=== PATIENT | female | born 1980 | race Asian ===

== ENCOUNTER → 2016-04-26 | Outpatient (CLI) | payer OTHER ==
[~2016-04-26] MED LIST: LEVO175T3 PO; PRENTAB26 PO
[2016-04-26 16:17] LABS: THYROID STIMULATING HORMONE 3.46 uIu/ml (0.300-4.500)
[2016-04-26 18:28] LABS: GTGD 50 Grams
== END | disposition home or self-care (01) ==
LOC: C.LAB1850 14:33
PROVIDERS: ATTEND Obstetrics & Gynecology
DX: Z34.91 Encounter for supervision of normal pregnancy, unspecified, first trimester (principal); E03.9 Hypothyroidism, unspecified

== ENCOUNTER → 2016-05-24 | Outpatient (CLI) | payer OTHER ==
[2016-05-28 17:35] LABS: AFP CONCENTRATION 35.7 NG/ML; AFP MULTIPLE OF MEDIAN 0.75; AFPTS GESTATIONAL AGE 19.7 WEEKS; AFPTS INSULIN DEP DIABETIC? NO; AFPTS MATERNAL WT 192 LBS; ALPHA-FETOPROTEIN RACE OTHER=O; EDD DETERMINED BY ULTRASOUND; ESTRIOL MULTIPLE OF MEDIAN 0.59; HISTORY OF NTD NO; INHIBIN A 183 PG/ML; INHIBIN A MOM 1.14; REPEAT SAMPLE? NO; hCG MULTIPLE OF MEDIAN 1.52
== END | disposition home or self-care (01) ==
LOC: C.LAB1850 13:54
PROVIDERS: ATTEND Obstetrics & Gynecology
DX: Z34.02 Encounter for supervision of normal first pregnancy, second trimester (principal); E03.9 Hypothyroidism, unspecified

== ENCOUNTER → 2016-06-21 | Outpatient (CLI) | payer OTHER ==
[2016-06-21 15:12] LABS: THYROID STIMULATING HORMONE 3.46 uIu/ml (0.300-4.500)
== END | disposition home or self-care (01) ==
LOC: C.LAB1850 13:22
PROVIDERS: ATTEND Internal Medicine Geriatric Medicine
DX: E03.9 Hypothyroidism, unspecified (principal)

== ENCOUNTER → 2016-07-13 | Outpatient (CLI) | payer OTHER ==
[2016-07-13 14:51] LABS: URINE APPEARANCE CLEAR (CLEAR); URINE BILIRUBIN NEG (NEG); URINE COLOR YELLOW; URINE NITRITE NEG (NEG); URINE PH 6.5 (4.5-7.5); UROBILINOGEN NEG (NEG)
[2016-07-13 15:02] LABS: MANUAL MICROSCOPIC REQUIRED? NO; REVIEW REQ? NO
== END | disposition home or self-care (01) ==
LOC: C.LAB1850 12:35
PROVIDERS: ATTEND Obstetrics & Gynecology
DX: R39.9 Unspecified symptoms and signs involving the genitourinary system (principal)

== ENCOUNTER → 2016-07-20 | Outpatient (CLI) | payer OTHER ==
[2016-07-20 16:54] LABS: URINE APPEARANCE CLEAR (CLEAR); URINE BILIRUBIN NEG (NEG); URINE COLOR YELLOW; URINE NITRITE NEG (NEG); URINE PH 7.5 (4.5-7.5); URINE SPECIFIC GRAVITY 1.016 (1.000-1.030); UROBILINOGEN NEG (NEG)
[2016-07-20 17:03] LABS: MANUAL MICROSCOPIC REQUIRED? NO; REVIEW REQ? NO
== END | disposition home or self-care (01) ==
LOC: C.LABSPEC 16:00
PROVIDERS: ATTEND Obstetrics & Gynecology
DX: Z34.91 Encounter for supervision of normal pregnancy, unspecified, first trimester (principal)

== ENCOUNTER → 2016-07-26 | Outpatient (CLI) | payer OTHER ==
[2016-07-26 12:17] LABS: HEMATOCRIT 34.8 % (37-47)
== END | disposition home or self-care (01) ==
LOC: C.LAB1850 09:27
PROVIDERS: ATTEND Obstetrics & Gynecology
DX: Z34.91 Encounter for supervision of normal pregnancy, unspecified, first trimester (principal); E03.9 Hypothyroidism, unspecified

== ENCOUNTER → 2016-08-14 | Outpatient (CLI) | payer OTHER | END | disposition home or self-care (01) | LOC: C.LAB1850 14:11 | PROVIDERS: ATTEND Family Medicine | DX: E03.9 Hypothyroidism, unspecified (principal) ==

== ENCOUNTER → 2016-09-18 | Outpatient (CLI) | payer OTHER | END | disposition home or self-care (01) | LOC: C.LABSPEC 15:02 | PROVIDERS: ATTEND Obstetrics & Gynecology | DX: Z34.83 Encounter for supervision of other normal pregnancy, third trimester (principal) ==

== ENCOUNTER → 2016-09-25 | Outpatient (CLI) | payer OTHER | END | disposition home or self-care (01) | LOC: C.LAB1850 16:40 | PROVIDERS: ATTEND Family Medicine | DX: E03.9 Hypothyroidism, unspecified (principal) ==

== ENCOUNTER 2016-10-16 19:55 | Outpatient (CLI) | payer OTHER ==
[~2016-10-16] VITALS: Ht 157.5 cm; Wt 90.9 kg
[~2016-10-16 19:55] MED LIST changes: -LEVO175T3 PO
[2016-10-16] MEDS ORDERED: LEVO175T3 PO (20:37)
[2016-10-16 20:39] VITALS: Ht 157.5 cm; Wt 90.9 kg
== END 2016-10-16 23:00 | disposition home or self-care (01) ==
LOC: C.OPB 19:55 → C.LD 19:55 → C.OPB 23:00
PROVIDERS: ATTEND Obstetrics & Gynecology
DX: O62.9 Abnormality of forces of labor, unspecified (principal); Z3A.40 40 weeks gestation of pregnancy

== ENCOUNTER 2016-10-17 08:05 | Inpatient (IN) | payer OTHER ==
[~2016-10-17] VITALS: Ht 157.5 cm; Wt 90.9 kg
[~2016-10-17 08:05] MED LIST changes: +LEVO175T3 PO
[2016-10-17 08:21] VITALS: Ht 157.5 cm; Wt 90.9 kg
[2016-10-17] MEDS ORDERED: LACTATED RINGER'S 1000ML 1,000 ML IV PRN (08:28)
[2016-10-17] MEDS ORDERED: LACTATED RINGER'S 1000ML 1,000 ML IV SCH (08:28)
[2016-10-17] MEDS ORDERED: BUPIVACAINE 0.25% 30 ML VIAL ONE (08:57)
[2016-10-17] MEDS ORDERED: FENTANYL 2MCG/ML ROPIV 1.25MG/ML 100ML BAG EPI ONE (08:57)
[2016-10-17] MEDS ORDERED: EpHEDrine SULFATE INJ 50 MG/ML AMP ONE (08:57)
[2016-10-17] MEDS ORDERED: FENTANYL CITRATE INJ 50 MCG/1 ML 2 ML VIAL ONE (08:58)
[2016-10-17 09:12] LABS: HEMATOCRIT 34.8 % (37-47); MEAN CELL VOLUME 87.4 fL (80-100); MEAN CORPUSCULAR HEMOGLOBIN 28.6 pg (25-34); MEAN CORPUSCULAR HGB CONC 32.8 g/dl (32-36); MEAN PLATELET VOLUME 10.9 fL (7.4-10.4); PLATELET COUNT 268 K/uL (130-400); RED BLOOD COUNT 3.98 M/uL (4.2-5.4); WHITE BLOOD COUNT 8.26 K/uL (4.8-10.8)
[2016-10-17] MEDS ORDERED: LACTATED RINGER'S 1000ML 500 ML IV PRN ×2 (10:21→11:01)
[2016-10-17] MEDS ORDERED: OXYTOCIN 30 UNITS/500ML NSS IV PRN ×2 (10:30→15:30)
[2016-10-17] MEDS ORDERED: NALOXONE HCL INJ 1 MG in SODIUM CHLORIDE 0.9% 1000ML 1,000 ML IV PRN (11:01)
[2016-10-17] MEDS ORDERED: NALBUPHINE HCL INJ 10 MG/ML AMP IV PRN (11:15)
[2016-10-17] MEDS ORDERED: NALOXONE HCL INJ 0.4 MG/1 ML VIAL/CARP IV PRN (11:15)
[2016-10-17] MEDS ORDERED: FENTANYL 2MCG/ML ROPIV 1.25MG/ML 100ML BAG EPI PRN (11:15)
[2016-10-17] MEDS ORDERED: DiphenhydrAMINE HCL 50 MG/ML VIAL IV PRN (11:15)
[2016-10-17] MEDS ORDERED: EpHEDrine SULFATE INJ 50 MG/ML AMP IV PRN (11:15)
[2016-10-17] MEDS ORDERED: ONDANSETRON INJ 2 MG/ML 2 ML VIAL IV PRN (11:15)
--- NOTE | 2016-10-17 15:28 | Vaginal Delivery Summary ---
Vaginal Delivery Summary VAGINAL DELIVERY NOTE Patient progressed to complete with epidural anesthesia. She then began to push and spontaneously vaginally delivered a viable female from the cephalic presentation. The patient had requested that an episiotomy be performed if the vaginal tissue appeared as if it was going to tear. This episiotomy was cut by patient request during a contraction while the head was . The head delivered in left occiput position, followed by anterior shoulder. Posterior shoulder delivered, followed by the body. There was no nuchal cord. The baby was placed on mother's abdomen, and a spontaneous cry was heard. Delayed cord clamping was performed, and a segment was retained for cord gases. Cord blood was obtained. The placenta delivered spontaneously intact with a three vessel cord. The uterus became firm. Pitocin was given. The uterus and vagina were swept of all clots and debris. The cervix, vagina and perineum were inspected and a 2nd degree perineal laceration/episiotomy were noted, and repaired in standard fashion with 3-0 vicryl. Excellent hemostasis was noted. Sponge, needle, and instrument counts were correct x 2 and the patient and baby recovered well in the room. Apgars 8/9. Weight pending: please see nursery records. EBL 300ml.
[2016-10-17] MEDS ORDERED: SUPERCREAM 0.870 % 15GM JAR EXT PRN (15:30)
[2016-10-17] MEDS ORDERED: BENZOCAINE 20% AER SPR 82.5 GM CAN EXT PRN (15:30)
[2016-10-17] MEDS ORDERED: LANOLIN OINT EXT PRN ×2 (15:30)
[2016-10-17] MEDS ORDERED: HYDROCORTISONE ACETATE 25 MG SUPP PR PRN (15:30)
[2016-10-17] MEDS ORDERED: MEASLES, MUMPS & RUBELLA VIRUS VIAL SQ. ONE (15:30)
--- NOTE | 2016-10-17 16:02 | Anesthesia Procedure Note ---
Anesthesia Epidural Removal Nt Date & Time Oct 17, 2016 at 16:02 Vital Signs Pain Intensity: 0.0 Notes Mental Status: alert / awake / arousable, participated in evaluation Nausea / Vomiting: adequately controlled Pain: adequately controlled Airway Patency, RR, SpO2: stable & adequate BP & HR: stable & adequate Hydration State: stable & adequate Neuraxial Anesthesia: was administered Anesthetic Complications: no major complications apparent, pt satisfied with anesthetic care Epidural: removed without complications, with tip intact
[2016-10-17] MEDS: IBUPROFEN 600 MG TAB PO PRN (18:04)
[2016-10-17 19:15] VITALS: BP 116/71; PULSE 89; TEMP 36.6; O2SAT 98
[2016-10-17] MEDS ORDERED: BISACODYL 5 MG TABEC PO ONE (20:00)
[2016-10-17] MEDS: OXYCODONE/ACETAMINOPHEN 5-325 TAB PO PRN (20:18)
[2016-10-17] MEDS: DOCUSATE SODIUM 100 MG CAP PO SCH (20:30)
[2016-10-17 23:30] VITALS: BP 111/72; PULSE 84; TEMP 36.6; O2SAT 97
[2016-10-18] MEDS: IBUPROFEN 600 MG TAB PO PRN ×3 (00:35→18:46)
[2016-10-18] MEDS: OXYCODONE/ACETAMINOPHEN 5-325 TAB PO PRN ×2 (00:36→07:57)
[2016-10-18 03:35] VITALS: BP 108/73; PULSE 84; TEMP 36.7; O2SAT 97
[2016-10-18 07:22] LABS: HEMATOCRIT 31.7 % (37-47)
[2016-10-18 07:45] VITALS: BP 114/75; PULSE 80; TEMP 36.4; O2SAT 99
--- NOTE | 2016-10-18 08:56 | Progress Note ---
Subjective Oct 18, 2016. Subjective conversation w/ patient, physical exam Ambulation: ambulating normally Voiding: no voiding problems Passing Gas: Yes Diet Tolerance: Regular Diet Lochia: Moderate Feeding Type: Breast Feeding Pain: controlled Review of Systems Constitutional: No problem reported Respiratory: No problem reported Cardiac: No problem reported Breast: No problem reported Abdomen: No problem reported Female : No problem reported Objective Vital Signs Date Time Temp Pulse Resp B/P (MAP) Pulse Ox O2 Delivery O2 Flow Rate FiO2 10/18/16 07:50 Room Air 10/18/16 07:45 36.4 80 16 114/75 (88) 99 Room Air 10/18/16 03:35 36.7 84 16 108/73 (85) 97 Room Air 10/17/16 23:30 36.6 84 18 111/72 (85) 97 Room Air 10/17/16 23:30 97 Room Air 10/17/16 19:15 98 Room Air 10/17/16 19:15 36.6 89 18 116/71 (86) 98 Room Air Physical Exam General Appearance: WELL-APPEARING, NO APPARENT DISTRESS Respiratory/Chest: no respiratory distress Cardiovascular: regular rate, rhythm Abdomen: non tender, soft Fundus: Firm Extremities: normal inspection Laboratory Results Last 24 Hours Test 10/18/16 06:42 Hemoglobin 10.3 g/dL Hematocrit 31.7 % Assessment and Plan Problem List Medical Problems: (1) Vaginal bleeding in patient at less than 20 weeks gestation Status: Acute Post- Day#: 1 Continue Routine Care: PPD#1 doing well. Continue routine care.
[2016-10-18] MEDS: DOCUSATE SODIUM 100 MG CAP PO SCH ×2 (09:19→20:00)
[2016-10-18] MEDS: LEVOTHYROXINE 175 MCG TAB PO SCH (09:19)
[2016-10-18 11:15] VITALS: BP 106/72; PULSE 94; TEMP 36.8
[2016-10-18] MEDS ORDERED: MEASLES, MUMPS & RUBELLA VIRUS VIAL SQ. ONE (13:00)
[2016-10-18 15:35] VITALS: BP 122/63; PULSE 86; TEMP 37
[2016-10-18] MEDS ORDERED: BISACODYL 5 MG TABEC PO SCH (20:00)
[2016-10-18 23:15] VITALS: BP 114/64; PULSE 82; TEMP 36.7
[2016-10-19] MEDS: OXYCODONE/ACETAMINOPHEN 5-325 TAB PO PRN ×2 (00:11→07:28)
[2016-10-19] MEDS: IBUPROFEN 600 MG TAB PO PRN ×2 (00:11→07:28)
--- NOTE | 2016-10-19 07:08 | Progress Note ---
Subjective Oct 19, 2016. Subjective conversation w/ patient, physical exam, lab review Ambulation: ambulating normally Voiding: no voiding problems Diet Tolerance: Regular Diet Lochia: Small Objective Vital Signs Date Time Temp Pulse Resp B/P (MAP) Pulse Ox O2 Delivery O2 Flow Rate FiO2 10/18/16 23:15 36.7 82 18 114/64 (81) Room Air 10/18/16 23:15 Room Air 10/18/16 15:35 37.0 86 18 122/63 (82) Room Air 10/18/16 15:35 Room Air 10/18/16 11:15 36.8 94 16 106/72 (83) Room Air 10/18/16 07:50 Room Air 10/18/16 07:45 36.4 80 16 114/75 (88) 99 Room Air Physical Exam General Appearance: WELL-APPEARING Abdomen: non tender Extremities: no calf tenderness Assessment and Plan Problem List Medical Problems: (1) Vaginal bleeding in patient at less than 20 weeks gestation Status: Acute Post- Day#: 2 Continue Routine Care: home
--- NOTE | 2016-10-19 07:09 | Discharge Instructions ---
Discharge Instructions Date of Service Oct 19, 2016. Admission Reason for Admission: Induction Discharge Discharge Diagnosis / Problem: Discharge Goals Goal(s): Routine recovery after delivery Activity Recommendations Activity Limitations: per Instructions/Follow-up section . Instructions / Follow-Up Instructions / Follow-Up ACTIVITY RECOMMENDATIONS: * Gradual return to full activity over the next 2-3 weeks. * No lifting - nothing heavier than baby over the next 2-3 weeks. * Do not engage in vigorous exercise, sexual activity or sports until cleared by your physician. * Do not drive or operate any motorized equipment until cleared by your physician. * You may shower/bathe daily. MEDICATIONS: For discomfort or pain, you may use Acetaminophen (Tylenol), Ibuprofen (Advil), or Naproxen (Aleve) following the package directions. For constipation you may use Colace following the package directions. BREAST CARE: If you are not breast feeding: * Wear a supportive bra 24 hours a day for one to two weeks. * Avoid stimulating your breasts and nipples as much as possible during the first few weeks after delivery. * When taking a shower, have the warm water hit your back, not breasts. * When your breasts feel full, apply ice packs. Usually three to four times a day helps ease the discomfort. * Take a mild pain medication (Tylenol / Motrin) when you are uncomfortable. If breast feeding: * Use breast milk to lubricate nipples. Lansinoh cream may be used for sore nipples. You do not need to remove cream prior to breast feeding. If using a different brand of cream, check the label for directions regarding removal of cream prior to nursing. * Wear a supportive bra. * If having problems with breasts or breast feeding, call a collection systems consultant or your health care provider. EPISIOTOMY CARE: After delivery, if you have an episiotomy (stitches), the following steps will ease discomfort and aid healing. * For the first 24 hours after delivery, place ice packs next to your episiotomy to help reduce swelling. * After the first 24 hour-period, sitz baths, either portable or in the tub, are suggested. A shower with a shower arm sprayed over the episiotomy may be comforting. * Karena care should be done after each voiding and bowel movement. Squirt warm water from a plastic bottle over the perineum (region of the body between the anus and urinary opening) and pat dry. * Use Dermoplast to ease discomfort. Shake container. [place] directly over the episiotomy. Place a Tucks on a clean sanitary pad next to your episiotomy. SPECIAL CARE INSTRUCTIONS: When you are discharged from the hospital, it is important for you to follow the instructions listed below: * During the first week at home, you should be able to care for yourself and your baby. In addition, the usual light household activities are encouraged. * Limit your activities to the way you feel. Do not try to clean the house or move furniture. Be sensible. * If you actively engage in sports and have done so up until the time of your delivery, you may resume these activities as soon as you feel able. This may take up to one month or even longer. Use good judgment. * Continue to take your vitamins for at least six weeks after the of your baby. * Your diet need not be limited unless you were on a special diet before your delivery. Breast-feeding mothers need around 2500 calories per day and at least 64-80 ounces of fluid per day (8 to 10 glasses). * You should eat foods from the four major food groups. Crash diets or fad diets are to be avoided. Eating lean meats, fresh fruits and vegetables, low-fat dairy products, high fiber foods and a regular exercise program, will help you get back to your pre- weight without putting your health at risk. * Constipation is sometimes a problem after delivery. Take a mild laxative as needed. If breast feeding, Milk of Magnesia is acceptable to use. You may use a suppository or Fleets enema if no episiotomy. * A daily shower or tub bath is suggested. Be sure to thoroughly and gently dry the perineum. * A bloody vaginal discharge will usually continue until around four weeks post . A small amount of bleeding may continue for as long as six weeks. Vaginal discharge changes from the bright red bleeding after delivery to pink then brownish and finally yellowish-pink before becoming white and disappearing. * Bleeding may increase with activity. Your first period may come in 4-8 weeks. If you are breast feeding, your period may be delayed even longer. * [place] (sex) can begin whenever both you and your partner feel comfortable and do not have any form of genital infection. It is recommended that you wait at least six weeks for internal and external healing to occur. If you have questions, please talk to your health care practitioner. A condom should be used to prevent infection and . * Foreplay, gentle intercourse and lubrication is very important the first several times to prevent pain. A water-based lubricant such as K-Y jelly or Astroglide may be used. * If you have RH negative blood and your baby is RH positive, you will receive RHOGAM by injection prior to discharge. The nurse will give you a card to keep with you that has the date and place that you received RHOGAM after delivery. * During your care, you had a Rubella screen done to check for the presence of rubella antibodies in your blood. If your test was negative, you will receive a Rubella vaccine prior to discharge. This vaccine may cause a fever, soreness at the injection site and flu-like symptoms. If these symptoms persist, notify your health care practitioner. is not advised for one month after a Rubella vaccine. * Verbalizes understanding of car seat law as reviewed with patient nursing. * Car Seat hand-out given and reviewed with patient by nursing. * Shaken baby information reviewed with patient by nursing. Call you doctor if: * Heavy bleeding (saturating several pads an hour) or passing clots the size of your fist. * A fever >101 degrees F (38.3 degrees C) on two occasions four hours apart and /or chills. * Unusual pain in the pelvic or vaginal areas. * "Baby Blues" lasting longer than two weeks. If you have any questions or concerns, call your health care practitioner at . FOLLOW UP VISIT: * Please call the office at to schedule a 6 week examination. It is important you keep this appointment. It is important for you to make arrangements for either yearly or twice yearly check-ups thereafter. Current Hospital Diet Patient's current hospital diet: Regular OB Diet Discharge Diet Recommended Diet: Regular OB Diet Pending Studies Studies pending at discharge: no Medical Emergencies . Who to Call and When: Medical Emergencies: If at any time you feel your situation is an emergency, please call 911 immediately. . Non-Emergent Contact Non-Emergency issues call your: Insurance Assistant . . "Provider Documentation" section prepared by Maxi Pantoja. . VTE Core Measure Inpt VTE Proph given/why not?: Treatment not indicated
[2016-10-19] MEDS: LEVOTHYROXINE 175 MCG TAB PO SCH (07:29)
[2016-10-19 07:35] VITALS: BP 131/88; PULSE 94; TEMP 36.7; O2SAT 98
[2016-10-19] MEDS ORDERED: DOCUSATE SODIUM 100 MG/10 ML UDC PO SCH (09:00)
[2016-10-19 14:00] VITALS: BP_DIAS 88; PULSE 94; TEMP 36.7
== END 2016-10-19 14:15 | disposition home or self-care (01) | DRG 775 ==
LOC: C.LD 08:05 → C.MS4N 18:41 → C.OBG 10-18 13:10
PROVIDERS: ADMIT Obstetrics & Gynecology; ATTEND Obstetrics & Gynecology
PROC: 0W8NXZZ Division of Female Perineum, External Approach (ICD-10-PCS; principal; 2016-10-17)
PROC: 10E0XZZ Delivery of Products of Conception, External Approach (ICD-10-PCS; principal; 2016-10-17)
PROC: 0KQM0ZZ Repair Perineum Muscle, Open Approach (ICD-10-PCS; principal; 2016-10-17)
DX: O99.284 Endocrine, nutritional and metabolic diseases complicating childbirth (principal); O99.214 Obesity complicating childbirth; O48.0 Post-term pregnancy; O70.1 Second degree perineal laceration during delivery; E03.9 Hypothyroidism, unspecified; E66.9 Obesity, unspecified; Z3A.40 40 weeks gestation of pregnancy; Z37.0 Single live birth

== ENCOUNTER → 2016-12-27 | Outpatient (CLI) | payer OTHER | END | disposition home or self-care (01) | LOC: C.LABBC 15:07 | PROVIDERS: ATTEND Physician Assistant | DX: E03.9 Hypothyroidism, unspecified (principal) ==

== ENCOUNTER → 2017-07-12 | Outpatient (CLI) | payer OTHER ==
[2017-07-12 13:51] LABS: BLOOD UREA NITROGEN 13 mg/dl (7-18); CALCIUM 9.2 mg/dl (8.5-10.1); CARBON DIOXIDE 24 mmol/L (21-32); CREATININE 0.74 mg/dl (0.60-1.20); GLUCOSE 97 mg/dl (70-99); POTASSIUM 4.2 mmol/L (3.5-5.1); SODIUM 137 mmol/L (136-145)
== END | disposition home or self-care (01) ==
LOC: C.LABBC 12:01
PROVIDERS: ATTEND Family Medicine Adult Medicine
DX: E03.9 Hypothyroidism, unspecified (principal); H57.8 Other specified disorders of eye and adnexa